=== PATIENT | female | born 1990 | race African-American/Black ===

== ENCOUNTER 2018-11-14 20:51 | Emergency (ER) | payer SELFPAY ==
[~2018-11-14] VITALS: Ht 170.2 cm; Wt 51.4 kg
[2018-11-14 20:54] VITALS: Ht 170.2 cm; Wt 51.4 kg
[2018-11-14] MEDS ORDERED: FAMOTIDINE 20 MG TAB PO STA (22:42)
[2018-11-14] MEDS ORDERED: ONDANSETRON 4 MG INJ IV STA (22:42)
[2018-11-14] MEDS ORDERED: SOD CHLORIDE 0.9% 1,000 ML IV STA (22:42)
--- NOTE | 2018-11-14 22:44 | ERD ---
ER Documentation Chief Complaint Chief Complaint ANXIETY, HYPERVENTILATION HPI This is a 27 yo patient who presents to ER with c/o intractable vomiting x4 days. Patient states she has long history of WILFRID and has these cyclical vomiting episodes with increased anxiety. She takes citalopram daily, does not have antinausea med, does not see psychiatrist. She appears very thin and gaunt, denies anorexia or eating disorder, denies SI/HI. No other symptoms such as fever, diarrhea, dysuria, no CP, no SOB. Periumbilical pain with vomiting. ROS All systems reviewed and are negative except as per history of present illness. Medications Home Meds Active Scripts Hydroxyzine Pamoate* (Vistaril*) 25 Mg Capsule, 25 MG PO Q6H PRN for ANXIETY for 10 Days, #30 CAP Prov:MILTON SHOEMAKER NP 11/15/18 Ondansetron (Ondansetron Odt) 4 Mg Tab.rapdis, 4 MG PO Q6H PRN for NAUSEA AND/OR VOMITING for 5 Days, #20 TAB Prov:MILTON SHOEMAKER [facility] [facility] 11/15/18 Allergies Allergies: Coded Allergies: No Known Allergy (Unverified , 11/14/18) PMhx/Soc History of Surgery: No Anesthesia Reaction: No Hx Neurological Disorder: No Hx Respiratory Disorders: No Hx Cardiac Disorders: No Hx Psychiatric Problems: Yes (ANXIETY) Hx Miscellaneous Medical Probl: No Hx Alcohol Use: No Hx Substance Use: No Hx Tobacco Use: No Smoking Status: Never smoker FmHx Family History: No diabetes, No coronary disease, No other Physical Exam Vitals Vital Signs Date Temp Pulse Resp B/P (MAP) Pulse Ox O2 O2 Flow FiO2 Time Delivery Rate 11/15/18 98.6 59 18 109/57 100 Room Air 03:50 (74) 11/14/18 97.1 79 24 123/65 100 20:54 (84) Physical Exam Const: No acute distress Head: Atraumatic Eyes: Normal Conjunctiva, PERRL, sunken eyes ENT: Normal External Ears, TM clear BL, Nose dry, Mouth dry, no lesions. Neck: Full range of motion. No meningismus. No lymphadenopathy Resp: Clear to auscultation bilaterally, eual chest rise Cardio: Regular rate and rhythm, no murmurs Abd: Soft, non tender, non distended. Normal bowel sounds, no bruising Skin: No petechiae or rashes, dry, color consistent with ethnicity Back: No midline or flank tenderness, no CVT Ext: No cyanosis, or edema Neur: Awake and alert, CNII-XII intact, clear speech, steady gait Psych: Anxious Mood and Affect Result Diagram: 11/14/184 11/14/18 230 Results 24 hrs Laboratory Tests Test 11/14/18 23:04 11/15/18 00:21 11/15/18 02:28 White Blood Count 14.5 10^3/ul Red Blood Count 4.92 10^6/ul Hemoglobin 14.9 g/dl Hematocrit 44.2 % Mean Corpuscular Volume 89.8 fl Mean Corpuscular Hemoglobin 30.3 pg Mean Corpuscular 33.7 g/dl Hemoglobin Concent Red Cell Distribution Width 12.8 % Platelet Count 390 10^3/UL Mean Platelet Volume 9.9 fl Immature Granulocytes % 1.000 % Neutrophils % 90.7 % Lymphocytes % 4.9 % Monocytes % 3.0 % Eosinophils % 0.1 % Basophils % 0.3 % Nucleated Red Blood Cells % 0.0 /100WBC Immature Granulocytes # 0.150 10^3/ul Neutrophils # 13.2 10^3/ul Lymphocytes # 0.7 10^3/ul Monocytes # 0.4 10^3/ul Eosinophils # 0.0 10^3/ul Basophils # 0.0 10^3/ul Nucleated Red Blood Cells # 0.0 10^3/ul Sodium Level 143 mmol/L Potassium Level 3.7 mmol/L Chloride Level 102 mmol/L Carbon Dioxide Level 23 mmol/L Anion Gap 18 Blood Urea Nitrogen 14 mg/dl Creatinine 0.72 mg/dl Est Glomerular Filtrat > 60 mL/min Rate mL/min Glucose Level 117 mg/dl Calcium Level 10.8 mg/dl Total Bilirubin 0.7 mg/dl Direct Bilirubin 0.00 mg/dl Indirect Bilirubin 0.7 mg/dl Aspartate Amino Transf (AST/SGOT) 26 IU/L Alanine 20 IU/L Aminotransferase (ALT/SGPT) Alkaline Phosphatase 73 IU/L Total Protein 8.9 g/dl Albumin 5.2 g/dl Globulin 3.70 g/dl Albumin/Globulin Ratio 1.40 Lipase 57 U/L Urine Color YELLOW Urine Clarity CLOUDY Urine pH 5.0 Urine Specific [place] 1.028 Urine Ketones 2+ mg/dL Urine Nitrite NEGATIVE mg/dL Urine Bilirubin NEGATIVE mg/dL Urine Urobilinogen NEGATIVE mg/dL Urine Leukocyte Esterase NEGATIVE Tashia/ul Urine Microscopic RBC 5 /HPF Urine Microscopic WBC 1 /HPF Urine Squamous Epithelial Cells FEW /HPF Urine Mucus MANY /HPF Urine Hemoglobin 1+ mg/dL Urine Glucose NEGATIVE mg/dL Urine Total Protein 2+ mg/dl POC Beta HCG, Qualitative NEGATIVE Current Medications Medications Dose Sig/Tam Start Time Status Last (Trade) Ordered Route PRN Stop Time Admin Dose Reason Admin Sodium 1,000 ml @ Q1H STAT 11/14/18 DC 11/14/18 Chloride 1,000 mls/hr IV 22:42 11/14/18 23:16 23:41 Ondansetron 4 mg ONCE STAT 11/14/18 DC 11/14/18 HCl (Zofran IV 22:42 11/14/18 23:19 Inj) 22:44 Famotidine 20 mg ONCE STAT 11/14/18 DC 11/14/18 (Pepcid) PO 22:42 11/14/18 23:19 22:44 Lorazepam 1 mg ONCE ONCE 11/14/18 DC 11/14/18 (Ativan) IV 23:00 11/14/18 23:19 23:01 Procedures/MDM PROCEDURES/MDM LAB INTERPRETATION: Leukocytosis that is likely due to prolonged vomiting and may be a pseudo- leukocytosis due to dehydration normal sodium and potassium, normal kidney function no transaminitis lipase normal urinalysis negative for nitrites and leukocyte Estrace, + ketones -Medications: NS, Zofran, Ativan, Pepciid Patient tolerated medication well with no adverse reactions. Patient reported improvement in pain, nausea resolved. -Consultation: Case and POC discussed with Dr. Martinez MDM: This is a 27 yo female who presents to the ER with c/o 4 days of cyclical vomiting that she attributes to her general anxiety disorder. Denies recent traumatic event, denies SI/HI. Patient appears thin and dehydrated. Patient provided with IV hydration, zofran, ativan. Blood work does not reveal hypokalemia, slight leukocytosis and acidosis due to dehydration that was treated with IV saline. Patient produced urine and successful PO challenge prior to discharge decision. Long discussion had with patient regarding use of zofran to ensure hydration and appropriate caloric intake and use of Vistaril for anxiety to prevent this cyclical syndrome. Patient instructed to follow-up with PMD MARYA for discussion of medication management and referral to psych. Pt ambulatory with steady gait, alert, nad, vss at time of d/c. Patient instructed on s/sx of worsening of condition and when to seek emergent medical treatment. The patient presents with nausea without definite explanation found on evaluation today. However, there are no signs of peritonitis or other life- threatening or serious etiology. The patient appears stable for discharge and has been instructed to return immediately if the symptoms worsen in any way DISPOSITION and PLAN: RX: Vistaril, Zofran The patient has been discharge home to follow-up with community physician. Departure Diagnosis: Primary Impression: Anxiety Additional Impression: Nausea & vomiting Vomiting type: cyclical vomiting Vomiting Intractability: non-intractable Qualified Codes: G43.A0 - Cyclical vomiting, not intractable Condition: Stable MILTON SHOEMAKER NP Nov 14, 2018 22:44
[2018-11-14] MEDS ORDERED: LORAZEPAM 2 MG INJ IV ONE (23:00)
[2018-11-15] MEDS ORDERED: HYDR25CA PO (02:09)
[2018-11-15] MEDS ORDERED: ONDA4TAB14 PO (02:09)
[2018-11-15 03:50] VITALS: BP 109/57; PULSE 59; RESP 18
[2018-11-16] MEDS ORDERED: ONDA4TAB14 PO (06:23)
[2018-11-16] MEDS ORDERED: LORA0.5T PO (06:23)
== END 2018-11-15 04:01 | disposition home or self-care (01) ==
LOC: FTE 20:51
DX: F41.9 Anxiety disorder, unspecified (principal); G43.A0 Cyclical vomiting, in migraine, not intractable
CPT/HCPCS: 36415; 80053; 81001; 81025; 83690; 85025; 96361; 96374; 96375; 99284; J2060; J2405; J7030

== ENCOUNTER 2018-11-16 05:52 | Emergency (ER) | payer SELFPAY ==
[~2018-11-16] VITALS: Ht 172.7 cm; Wt 52.2 kg
[~2018-11-16 05:52] MED LIST: HYDR25CA PO; ONDA4TAB14 PO
[2018-11-16 05:54] VITALS: Ht 172.7 cm; Wt 52.2 kg
[2018-11-16] MEDS ORDERED: ONDANSETRON (ODT) 4 MG TAB ODT STA (06:06)
[2018-11-16] MEDS ORDERED: ONDA4TAB14 PO (06:23)
[2018-11-16] MEDS ORDERED: LORA0.5T PO (06:23)
--- NOTE | 2018-11-16 06:29 | ERD ---
ER Documentation Chief Complaint Chief Complaint Abdominal pain.anxiety. HPI 27-year-old female presented to ED for 02/18 anxiety nausea and vomiting. Patient was seen in the ED a few days ago for the same symptoms. Patient suffers from chronic anxiety and she is been out of her medication for 2 weeks. Patient states that she is just been under a lot of stress and is causing her not be able to eat or hold food down or liquids. Patient states she has not been sexually active in over 2 years and a screening was done on her last visit which was on the sixth and was negative. Patient denies any suicidal or homicidal ideation. Patient is under care of a psychiatrist but needs to get in to get her medication refilled. Patient denies any allergies to medications. ROS All systems reviewed and are negative except as per history of present illness. Medications Home Meds Active Scripts Lorazepam* (Lorazepam*) 0.5 Mg Tablet, 0.5 MG PO HS PRN for AGITATION/ANXIETY for 4 Days, TAB Prov:MAISHA PALMER PA-C 11/16/18 Ondansetron (Ondansetron Odt) 4 Mg Tab.rapdis, 4 MG PO Q6H PRN for NAUSEA AND/OR VOMITING, #10 TAB Prov:MAISHA PALMER PA-C 11/16/18 Hydroxyzine Pamoate* (Vistaril*) 25 Mg Capsule, 25 MG PO Q6H PRN for ANXIETY for 10 Days, #30 CAP Prov:MILTON SHOEMAKER NP 11/15/18 Ondansetron (Ondansetron Odt) 4 Mg Tab.rapdis, 4 MG PO Q6H PRN for NAUSEA AND/OR VOMITING for 5 Days, #20 TAB Prov:MILTON SHOEMAKER NP 11/15/18 Allergies Allergies: Coded Allergies: No Known Allergy (Unverified , 11/14/18) PMhx/Soc History of Surgery: No Anesthesia Reaction: No Hx Neurological Disorder: No Hx Respiratory Disorders: No Hx Cardiac Disorders: No Hx Psychiatric Problems: Yes (ANXIETY) Hx Miscellaneous Medical Probl: No Hx Alcohol Use: No Hx Substance Use: No Hx Tobacco Use: No Smoking Status: Never smoker FmHx Family History: No diabetes, No coronary disease, No other Physical Exam Vitals Vital Signs Date Temp Pulse Resp B/P (MAP) Pulse Ox O2 O2 Flow FiO2 Time Delivery Rate 11/16/18 97.0 78 32 138/72 99 05:54 (94) Physical Exam Const: Moderate distress Head: Atraumatic Eyes: Normal Conjunctiva ENT: Normal External Ears, Nose and Mouth. Neck: Full range of motion. No meningismus. Resp: Clear to auscultation bilaterally Cardio: Regular rate and rhythm, no murmurs Abd: Soft, non tender, non distended. Normal bowel sounds Skin: No petechiae or rashes Back: No midline or flank tenderness Ext: No cyanosis, or edema Neur: Awake and alert Psych: Anxious Results 24 hrs Current Medications Medications Dose Sig/Tam Start Time Status Last (Trade) Ordered Route PRN Stop Time Admin Dose Reason Admin Ondansetron 4 mg ONCE STAT 11/16/18 DC 11/16/18 HCl (Zofran ODT 06:06 11/16/18 06:17 Odt) 06:11 Lorazepam 0.5 mg ONCE ONCE 11/16/18 DC 11/16/18 (Ativan) PO 06:30 11/16/18 06:17 06:31 Sodium 500 ml @ Q1H ONCE 11/16/18 DC 11/16/18 Chloride 500 mls/hr IV 06:30 11/16/18 06:15 07:29 5 mg ONCE ONCE 11/16/18 DC 11/16/18 Metoclopramid IV 06:30 11/16/18 06:34 e HCl 06:31 (Reglan) Lorazepam 1 mg ONCE ONCE 11/16/18 DC 11/16/18 (Ativan) IV 07:00 11/16/18 06:58 07:01 Procedures/MDM ED course: IV fluids Zofran Ativan Reglan The patient was stable throughout the ED course. The patient and/or family informed of laboratory and diagnostic imaging results throughout the ED course. Medications given in ER: Normal saline Zofran Ativan Reglan Patient tolerated medication well with no adverse reactions. Patient reported improvement in pain. Medical decision making: Patient is 27-year-old female presented to ED for 10 out of 10 anxiety nausea and vomiting. Patient was seen in the ED the other day for the same issue. Patient states she is been out of her medication and cannot get into her psychiatrist to get her medications refilled. Patient states she is been under a lot of stress and when she gets anxious she cannot hold food down and becomes nauseous and starts to vomit. Patient's physical exam was unremarkable abdominal exam was soft nontender. Patient was given IV fluids, PO Zofran, and PO 0.5mg Ativan in the ED. on reevaluation the patient the patient states that she still feels 10 out of 10 anxiety and that she really feels like the medication at work because she felt like she vomited it up. Patient was given IV Ativan 1 mg and IV Reglan on reevaluation the patient appears to be resting comfortably. The patient's states her anxiety level is now a 1 out of 10 has been much better and the patient is no longer feeling nauseous and has has not had any more episodes of vomiting since receiving the medication. The patient had screening 2 days ago which was negative and patient states she has not had sexual intercourse in the last 2 years. At this time I have low patient for acute coronary syndrome, AAA, mesenteric ischemia, lower lobe pneumonia, DKA, bowel perforation, cholecystitis, choledocholithiasis, ascending cholangitis, hepatic abscess, pancreatitis, PUD, gastritis, GERD, splenic rupture, diverticulitis, UTI, pyelonephritis, nephrolithiasis, appendicitis, constipation, , ectopic , PID, ovarian torsion or tubo-ovarian abscess, psychosis,suicidal or homicidal ideation.. The patient will be discharged with 4, 0.5 mg of Ativan and a prescription for Zofran to help with the symptoms until she can get into her psychiatrist. Patient states she is in a call today to make an appointment to get in the next few days. Advised the patient that she cannot drive home from the ED because of the Ativan and that she will need to call for a ride. I advised the patient that the Ativan is a controlled substance and she cannot drink alcohol or operate heavy machinery or drive a vehicle when she takes it and she should only take it if she is having severe anxiety. Patient states that her roommate is going to pick her up. The patient is in agreement to the treatment plan and had no further questions upon discharge. Prescription for home: Zofran Ativan I have discussed with the patient proper use and common side effects to expert with the medication . I advised the patient/family to speak with the pharmacist dispensing the medication to be advised of any potential drug interactions with other medication or supplements they may be taking. Discharge: At this time, patient is stable for discharge and outpatient management. I have instructed the patient to follow-up with his\her primary care physician in 1 to 2 days. I have discussed with the patient the possibility of needing to see a specialist for further work-up and imaging studies if symptoms persist. I have instructed the patient to promptly return to the ER for any new or worsening symptoms including increased pain, fever, nausea, vomiting, weakness or LOC. The patient and\or family expressed understanding of and agreement with this plan. All questions were answered. Home care instructions were provided. Disclaimer: Inadvertent spelling and grammatical errors are likely due to EHR\dictation soft lynn use and do not reflect on the overall quality of patient care. Also, please note that the electronic time recorded on the note does not necessarily reflect the actual time of the patient encounter. Departure Diagnosis: Primary Impression: Anxiety Additional Impression: Nausea & vomiting Vomiting type: unspecified Vomiting Intractability: unspecified Qualified Codes: R11.2 - Nausea with vomiting, unspecified Condition: Stable Patient Instructions: Nausea and Vomiting-Adult, Anxiety Reaction Referrals: [facility] YOU HAVE RECEIVED A MEDICAL SCREENING EXAM AND THE RESULTS INDICATE THAT YOU DO NOT HAVE A CONDITION THAT REQUIRES URGENT TREATMENT IN THE EMERGENCY DEPARTMENT. FURTHER EVALUATION AND TREATMENT OF YOUR CONDITION CAN WAIT UNTIL YOU ARE SEEN I N YOUR DOCTORS OFFICE WITHIN THE NEXT 1-2 DAYS. IT IS YOUR RESPONSIBILITY TO MAKE AN APPOINTMENT FOR FOLOW-UP CARE. IF YOU HAVE A PRIMARY DOCTOR --you should call your primary doctor and schedule an appointment IF YOU DO NOT HAVE A PRIMARY DOCTOR YOU CAN CALL OUR PHYSICIAN REFERRAL HOTLINE AT IF YOU CAN NOT AFFORD TO SEE A PHYSICIAN YOU CAN CHOSE FROM THE FOLLOWING [facility] [address] [facility] [address] [facility]. [facility] [address] [facility] [address] [facility] [address] [facility]. [facility]. [address] [facility] [facility] YOU HAVE RECEIVED A MEDICAL SCREENING EXAM AND THE RESULTS INDICATE THAT YOU DO NOT HAVE A CONDITION THAT REQUIRES URGENT TREATMENT IN THE EMERGENCY DEPARTMENT. FURTHER EVALUATION AND TREATMENT OF YOUR CONDITION CAN WAIT UNTIL YOU ARE SEEN IN YOUR DOCTORS OFFICE WITHIN THE NEXT 1-2 DAYS. IT IS YOUR RESPONSIBILITY TO MAKE AN APPOINTMENT FOR FOLOW-UP CARE. IF YOU HAVE A PRIMARY DOCTOR --you should call your primary doctor and schedule and appointment IF YOU DO NOT HAVE A PRIMARY DOCTOR YOU CAN CALL OUR PHYSICIAN REFERRAL HOTLINE AT . IF YOU CAN NOT AFFORD TO SEE A PHYSICIAN YOU CAN CHOSE FROM THE FOLLOWING [facility] INSTITUTIONS: [facility] [address] [place] [address] [facility] [address] [place] [address] [facility] [address] [place] [address] Additional Instructions: Call your primary care doctor TOMORROW for an appointment during the next 1-2 days.See the doctor sooner or return here if your condition worsens before your appointment time. MAISHA PALMER PA-C Nov 16, 2018 06:29
[2018-11-16] MEDS ORDERED: LORAZEPAM 0.5 MG TAB PO ONE (06:30)
[2018-11-16] MEDS ORDERED: SOD CHLORIDE 0.9% 500 ML IV ONE (06:30)
[2018-11-16] MEDS ORDERED: METOCLOPRAMIDE 10 MG INJ IV ONE (06:30)
[2018-11-16] MEDS ORDERED: LORAZEPAM 2 MG INJ IV ONE (07:00)
[2018-11-16 07:54] VITALS: BP 115/70; PULSE 60; RESP 17
== END 2018-11-16 07:56 | disposition home or self-care (01) ==
LOC: FTE 05:52
DX: F41.9 Anxiety disorder, unspecified (principal); R11.2 Nausea with vomiting, unspecified
CPT/HCPCS: 96361; 96374; 96375; 99284; J2060; J2765; J7040